=== PATIENT | male | born 1950 | race Hispanic/Latino ===

== ENCOUNTER 2016-12-22 14:01 | Emergency (ER) | payer BC, OTHER ==
[2016-12-22 14:19] VITALS: BMI 25.1
[2016-12-22 14:20] VITALS: BP 153/93; PULSE 84; RESP 18; TEMP 98.2; O2SAT 95
--- NOTE | 2016-12-22 15:28 | C.PDOC ---
History Of Present Illness 66 yr old male presents to the ER stating he is having withdrawal symptoms from Clonazepam and has ran out of EPI pens. Patient states he lost his insurance coverage and is unable to go get more. Patient states he is allergic to an unknown thing and has been seen by unit supervisor but is unsure. Patient denies fever , chest pain, SOB, weakness or numbness. Time Seen by Provider: 12/22/16 14:28 Chief Complaint (Nursing): Med Refill History Per: Patient History/Exam Limitations: no limitations Onset/Duration Of Symptoms: Days Past Medical History Reviewed: Historical Data, Nursing Documentation, Vital Signs Vital Signs: Last Vital Signs Temp 98.2 F 12/22/16 14:19 Pulse 84 12/22/16 14:19 Resp 18 12/22/16 14:19 BP 153/93 H 12/22/16 14:19 Pulse Ox 95 12/22/16 15:47 - Medical History PMH: Anxiety, Asthma, COPD, Depression, HTN Family History: States: No Known Family Hx - Social History Hx Alcohol Use: Yes Hx Substance Use: No - Immunization History Hx Tetanus Toxoid Vaccination: No Hx Influenza Vaccination: No Review Of Systems Except As Marked, All Systems Reviewed And Found Negative. Constitutional: Negative for: Fever Cardiovascular: Negative for: Chest Pain Respiratory: Negative for: Shortness of Breath Neurological: Negative for: Weakness, Numbness Physical Exam - Physical Exam Appears: Non-toxic, No Acute Distress Skin: Warm, Dry, No Rash Head: Atraumatic, Normacephalic Eye(s): bilateral: Normal Inspection, PERRL, EOMI Oral Mucosa: Moist Neck: Normal ROM, Supple Chest: Symmetrical, No Tenderness Cardiovascular: Rhythm Regular, No Friction Rub, No Murmur Respiratory: Normal Breath Sounds, No Rales, No Rhonchi, No Stridor, No Wheezing Neurological/Psych: Oriented x3, Normal Speech, Normal Motor Gait: Steady ED Course And Treatment O2 Sat by Pulse Oximetry: 95 (RA ) Pulse Ox Interpretation: Normal Disposition - Disposition Referrals: [facility] [Outside] Jalen Newton MD [Medical Doctor] - Disposition: HOME/ ROUTINE Disposition Time: 15:46 Condition: GOOD Additional Instructions: Follow up with the medical doctor/clinic within 1-2 days. Return if worsened. Prescriptions: Epinephrine [Epipen] 0.3 mg IJ ONCE #2 auto.injct Instructions: General Allergic Reaction (ED) Forms: [employer] (Kiswahili) - Clinical Impression Clinical Impression: Review of medication, Medication refill - PA / TRANSCRIPTION TYPIST / Resident Statement MD/DO has reviewed & agrees with the documentation as recorded. - Scribe Statement The provider has reviewed the documentation as recorded by the Scribe Tracie Proctor All medical record entries made by the Marielaibe were at my direction and personally dictated by me. I have reviewed the chart and agree that the record accurately reflects my personal performance of the history, physical exam, medical decision making, and the department course for this patient. I have also personally directed, reviewed, and agree with the discharge instructions and disposition.
== END 2016-12-22 15:54 | disposition home or self-care (01) ==
LOC: C.ER 14:01
DX: Z76.0 Encounter for issue of repeat prescription (principal)

== ENCOUNTER 2018-05-12 12:20 | Emergency (ER) | payer MEDICAID, MEDICARE, OTHER ==
[2018-05-12 12:20] VITALS: BMI 25.1
[2018-05-12] MEDS ORDERED: Sodium Chloride 0.9% 1,000 ML IV ONE (13:15)
[2018-05-12] MEDS ORDERED: Sodium Chloride 0.9% 1,000 ML ONE (13:25)
[2018-05-12 13:30] LABS: BASO # 0.1 K/uL (0.0-0.2); BASO % 0.7 % (0.0-2.0); EOS # 0.1 K/uL (0.0-0.7); EOS % 1.5 % (0.0-4.0); HEMOGLOBIN 16.6 g/dL (12.0-18.0); LYMPH # 1.5 K/uL (1.0-4.3); LYMPH % 20.2 % (20.0-40.0); MEAN CELL VOLUME 98.9 fL (80.0-94.0); MEAN CORPUSCULAR HEMOGLOBIN 33.2 pg (27.0-31.0); MEAN CORPUSCULAR HGB CONC 33.6 g/dL (33.0-37.0); MEAN PLATELET VOLUME 8.1 fL (7.2-11.7); MONO # 0.6 K/uL (0.0-0.8); MONO % 7.5 % (0.0-10.0); NEUT # 5.4 K/uL (1.8-7.0); NEUT % 70.1 % (50.0-75.0); NRBC % 0.1 % (0.0-2.0); RBC 5.01 Mil/uL (4.40-5.90); RED CELL DISTRIBUTION WIDTH 14.6 % (11.5-14.5); WHITE BLOOD COUNT 7.7 K/uL (4.8-10.8)
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
[2018-05-12 13:43] LABS: ALB/GLOB RATIO 1.8 (1.0-2.1); ALBUMIN 4.6 g/dL (3.5-5.0); ALT/SGPT 31 U/L (21-72); AST/SGOT 30 U/L (17-59); BLOOD UREA NITROGEN 14 mg/dL (9-20); CALCIUM 9.2 mg/dl (8.6-10.4); GFR NON-AFRICAN AMERICAN > 60
--- NOTE | 2018-05-12 14:53 | CT ---
Date of service: 05/12/2018 PROCEDURE: CT HEAD WITHOUT CONTRAST. HISTORY: R/O Bleed COMPARISON: None available. TECHNIQUE: Axial computed tomography images were obtained through the head/brain without intravenous contrast. Radiation dose: Total exam DLP = 1138.73 mGy-cm. This CT exam was performed using one or more of the following dose reduction techniques: Automated exposure control, adjustment of the mA and/or kV according to patient size, and/or use of iterative reconstruction technique. FINDINGS: HEMORRHAGE: No intracranial hemorrhage. BRAIN: No mass effect or edema. No atrophy or chronic microvascular ischemic changes. VENTRICLES: Unremarkable. No hydrocephalus. CALVARIUM: Unremarkable. PARANASAL SINUSES: Unremarkable as visualized. No significant inflammatory changes. MASTOID AIR CELLS: Unremarkable as visualized. No inflammatory changes. OTHER FINDINGS: None. IMPRESSION: Normal CT of the Head. No intracranial mass, hemorrhage or evidence of acute infarct.
--- NOTE | 2018-05-12 14:58 | CT ---
Date of service: 05/12/2018 PROCEDURE: CT MAXILLOFACIAL BONES WITHOUT CONTRAST HISTORY: trauma COMPARISON: None available. TECHNIQUE: Contiguous axial CT images of the maxillofacial bones were obtained. Coronal and sagittal reformats were generated. Radiation dose: Total exam DLP = 935.66 mGy-cm. This CT exam was performed using one or more of the following dose reduction techniques: Automated exposure control, adjustment of the mA and/or kV according to patient size, and/or use of iterative reconstruction technique. FINDINGS: NASAL BONES: Unremarkable. ORBITS: Unremarkable. PARANASAL SINUSES/ MASTOIDS: Clear. MAXILLA: No fracture. Right pre maxillary soft tissue swelling noted. MANDIBLE/ TEMPOROMANDIBULAR JOINTS: No fracture. Temporomandibular joints unremarkable. Apical lucency noted about to left posterior molars, indicative of periodontal disease. SKULL BASE: Unremarkable. TEMPORAL BONES: Middle ears and mastoid grossly unremarkable. OTHER FINDINGS: None. IMPRESSION: No evidence of maxillofacial fracture. Periodontal disease involving to left posterior mandibular molars. Right pre maxillary ecchymosis.
[2018-05-12 16:00] VITALS: BP 147/87; PULSE 67; RESP 20; TEMP 97.5
[2018-05-12 21:13] VITALS: O2SAT 98
--- NOTE | 2018-05-14 08:37 | CARD ---
APPROVED REPORT Date of service: 05/12/2018 EKG Measurement Heart [id number] <Conclusion> Normal sinus rhythm Normal ECG
== END 2018-05-12 16:14 | disposition home or self-care (01) ==
LOC: C.ER 12:20
DX: S06.0X0A Concussion without loss of consciousness, initial encounter (principal); S00.83XA Contusion of other part of head, initial encounter; Y04.0XXA Assault by unarmed brawl or fight, initial encounter; R42 Dizziness and giddiness
CPT/HCPCS: 70450; 70480; 80053; 85025; 93005; 96361; 96374; 99285; J1885; J7030

== ENCOUNTER 2018-09-14 23:59 | Emergency (ER) | payer MEDICARE, MEDICAID ==
[2018-09-15] VITALS: BMI 25.1
[2018-09-15 00:10] VITALS: TEMP 97.6
[2018-09-15] MEDS ORDERED: Sodium Chloride 0.9% 1,000 ML IV ONE (00:11)
[2018-09-15] MEDS ORDERED: Sodium Chloride 0.9% 1,000 ML ONE (00:18)
--- NOTE | 2018-09-15 01:25 | C.PDOC ---
History Of Present Illness 67 year old male is brought to the ED by EMS for evaluation of diffuse urticaria that started around 21:00 after eating a Big Mac. Patient reports he started feeling itchy and his lip tingling. Patient used an epi pen, however continued to feel itchy. Patient proceeded to use a second epi pen, then called EMS. Patient received Solumedrol 125 and Benadryl 50 in the field. Patient reports past history of "undiagnosed food allergies". Patient denies fever, chills, nausea, vomit, CP, SOB, palpitations, wheezing, sensation of throat closing. Time Seen by Provider: 09/15/18 00:02 Chief Complaint (Nursing): Allergic Reaction History Per: Patient, EMS History/Exam Limitations: no limitations Onset/Duration Of Symptoms: Hrs Current Symptoms Are (Timing): Still Present Context: Food Possible Cause: Food Associated Symptoms: Skin Rash, Itching Home/EMS Treatment: Epi-pen (x 2) Recent travel outside of the [place]: No Additional History Per: Patient, EMS Past Medical History Reviewed: Historical Data, Nursing Documentation, Vital Signs Vital Signs: Last Vital Signs Temp 97.6 F 09/15/18 00:06 Pulse 74 09/15/18 00:06 Resp 18 09/15/18 00:06 BP 115/78 09/15/18 00:06 Pulse Ox 98 09/15/18 00:06 - Medical History PMH: Anxiety, Asthma, COPD, Depression, HTN, Post Traumatic Stress Disorder Surgical History: No Surg Hx Family History: States: Unknown Family Hx - Social History Hx Alcohol Use: Yes Hx Substance Use: No - Immunization History Hx Tetanus Toxoid Vaccination: No Hx Influenza Vaccination: No Review Of Systems Constitutional: Negative for: Fever, Chills Eyes: Negative for: Vision Change ENT: Negative for: Nose Discharge, Mouth Swelling, Throat Swelling Cardiovascular: Negative for: Chest Pain Respiratory: Negative for: Cough, Shortness of Breath, Wheezing Gastrointestinal: Negative for: Nausea, Vomiting, Abdominal Pain Skin: Positive for: Rash Neurological: Negative for: Weakness, Numbness, Headache, Dizziness Physical Exam - Physical Exam Appears: Non-toxic, No Acute Distress Skin: Normal Color, Warm, Dry, Rash (diffuse urticaria on arms, chets and legs) Head: Atraumatic, Normacephalic Eye(s): bilateral: Normal Inspection Oral Mucosa: Moist Tongue: No Swelling Lips: No Swelling Throat: Normal, No Erythema, No Exudate, No Drooling, Other (uvula midline, airway patent) Neck: Normal ROM, Supple Chest: Symmetrical Cardiovascular: Rhythm Regular Respiratory: Normal Breath Sounds, No Rales, No Rhonchi, No Wheezing, Other (speaking full sentences) Extremity: Normal ROM Neurological/Psych: Oriented x3, Normal Speech, Normal Cognition Gait: Steady ED Course And Treatment O2 Sat by Pulse Oximetry: 98 (ON RA) Pulse Ox Interpretation: Normal Progress Note: Plan: -pepcid 20 mg IVP. - IV fluids Disposition Counseled Patient/Family Regarding: Diagnosis, Need For Followup, Rx Given - Disposition Referrals: Laura Feliz MD [Medical Doctor] - Disposition: HOME/ ROUTINE Disposition Time: 15:25 Condition: STABLE Additional Instructions: FOLLOW UP WITH YOUR DOCTOR IN 1-2 DAYS USE MEDICATIONS DIRECTED RETURN TO ER IF SYMPTOMS WORSEN Prescriptions: DiphenhydrAMINE [Benadryl] 25 mg PO Q6 PRN #20 cap PRN Reason: itching, rash Epinephrine [Epipen] 0.3 mg IJ ONCE #2 auto.injct predniSONE [predniSONE Tab] 40 mg PO DAILY #6 tab Instructions: Hives (DC), Food Allergy Forms: [employer] (Honduran) Print Language: OCCITAN - Clinical Impression Clinical Impression: Allergic urticaria, Food allergy - Scribe Statement The provider has reviewed the documentation as recorded by the Scribe Brando Hernandez All medical record entries made by the Scribe were at my direction and personally dictated by me. I have reviewed the chart and agree that the record accurately reflects my personal performance of the history, physical exam, medical decision making, and the department course for this patient. I have also personally directed, reviewed, and agree with the discharge instructions and disposition.
[2018-09-15 03:04] VITALS: BP 116/81; PULSE 76; RESP 16
[2018-09-15 03:28] VITALS: O2SAT 98
== END 2018-09-15 04:00 | disposition home or self-care (01) ==
LOC: C.ER 23:59
DX: L50.0 Allergic urticaria (principal); L27.2 Dermatitis due to ingested food; I10 Essential (primary) hypertension; J44.9 Chronic obstructive pulmonary disease, unspecified
CPT/HCPCS: 96374; 99285; J7030